=== PATIENT | female | born 1960 | race African-American/Black ===

== ENCOUNTER 2023-04-05 13:34 | Emergency (ER) | payer OTHER ==
[~2023-04-05] VITALS: Ht 167.6 cm; Wt 68.0 kg
[2023-04-05 13:41] VITALS: O2SAT 99
[2023-04-05] MEDS ORDERED: KETOROLAC 30MG/ML VIAL IM ONE (15:30)
[2023-04-05] MEDS ORDERED: CYCLOBENZAPRINE 10MG TABLET PO ONE (15:30)
[2023-04-05 16:40] VITALS: BP 144/75; PULSE 70; RESP 18; TEMP 98.6
[2023-04-05] MEDS ORDERED: NAPR-681 MT (16:43)
[2023-04-05] MEDS ORDERED: CYCL10TA21 PO (16:43)
[2023-04-05] MEDS ORDERED: METH-773 MT (18:00)
[2023-04-05] MEDS ORDERED: IBUP-2029 PO (18:00)
== END 2023-04-05 17:13 | disposition home or self-care (01) ==
LOC: ER 13:34
DX: M25.551 Pain in right hip (principal)
CPT/HCPCS: 99283; 73502; 96372; J1885